=== PATIENT | female | born 1980 | race Caucasian/White ===

== ENCOUNTER → 2017-07-03 | Outpatient (CLI) | payer OTHER, MEDICAID | LOC: HORT 11:34 | PROVIDERS: ATTEND Family Medicine | DX: Z46.89 Encounter for fitting and adjustment of other specified devices (principal); S52.501A Unspecified fracture of the lower end of right radius, initial encounter for closed fracture | CPT/HCPCS: L3808 ==

== ENCOUNTER → 2017-07-17 | Outpatient (CLI) | payer OTHER, MEDICAID | LOC: HORT 11:31 | PROVIDERS: ATTEND Family Medicine | DX: S52.501A Unspecified fracture of the lower end of right radius, initial encounter for closed fracture (principal); X58.XXXA Exposure to other specified factors, initial encounter | CPT/HCPCS: L3808; L3908 ==

== ENCOUNTER 2017-07-24 17:23 | Emergency (ER) | payer MEDICAID, OTHER ==
[~2017-07-24] VITALS: Ht 167.6 cm; Wt 50.0 kg
[2017-07-24 17:26] VITALS: BP 165/80; PULSE 80; RESP 20; TEMP 98.3; O2SAT 98
--- NOTE | 2017-07-24 17:32 | PD ---
Physical Exam Time Seen by Provider: 17:29 Narrative 37yo F c/o R arm cast being too tight and causing numbness and tingling in fingers. Cast placed last . Called today and was told to come to ER. Patient seen in triage. VS reviewed. Awaiting bed placement. Data Data Last Documented VS Vital Signs Date Time Temp Pulse Resp B/P (MAP) Pulse Ox O2 Delivery O2 Flow Rate FiO2 07/24/17 17:26 98.3 80 20 165/80 (108) 98 Room Air MDM Supervised Visit with JR: Elva Edmonds Jul 24, 2017 17:32
--- NOTE | 2017-07-24 17:38 | PD ---
HPI Chief Complaint: Injury Time Seen by Provider: 17:35 Travel History International Travel<30 days: No Contact w/Intl Traveler<30days: No Traveled to known affect area: No History of Present Illness HPI 37-year-old female with history of distal radial fracture 3 weeks ago. Patient states the cast that she has now was placed one week ago but she' s having increasing pain and tingling in the fingers. Patient called the doctor 's office and was referred here for evaluation. Patient is followed by Dr. Oswald. Patient is in a long arm spica splint. Pain is currently an 8 out of 10. Pain is localized to the right elbow and forearm. Patient is allergic to aspirin. PFSH Past Medical History Asthma: Yes Anxiety: Yes Diminished Hearing: No ?: Not Tubal Ligation: Yes Social History Alcohol Use: No Tobacco Use: No Substance Use: No Allergies-Medications (Allergen,Severity, Reaction): Coded Allergies: aspirin (Verified Allergy, Unknown, 07/24/17) Review of Systems General / Constitutional: No: Fever Eyes: No: Visual changes HENT: No: Headaches Cardiovascular: No: Chest Pain or Discomfort Respiratory: No: Shortness of Breath Gastrointestinal: No: Abdominal Pain Genitourinary: No: Dysuria Musculoskeletal: No: Pain Skin: No Rash Neurologic: No: Weakness Psychiatric: No: Depression Endocrine: No: Polydipsia Hematologic/Lymphatic: No: Easy Bruising Physical Exam Narrative GENERAL: Patient is in no acute distress. SKIN: Warm and dry. Normal color. Normal turgor HEAD: Atraumatic. Normocephalic. EYES: Pupils equal and round. No scleral icterus. No injection or drainage. ENT: No nasal bleeding or discharge. Mucous membranes pink and moist. NECK: Trachea midline. Supple CARDIOVASCULAR: Regular rate and rhythm. RESPIRATORY: No accessory muscle use. Clear to auscultation. Breath sounds equal bilaterally. MUSCULOSKELETAL: Extremities without clubbing, cyanosis, or edema. No obvious deformities. Lungs are spica splint on the right arm in place and appears normal. Patient does have cool right fingers without swelling. Patient complains of pins and needles and fingers of the right. NEUROLOGICAL: Awake and alert. No obvious cranial nerve deficits. Motor grossly within normal limits. Five out of 5 muscle strength in the arms and legs. Normal speech. PSYCHIATRIC: Appropriate mood and affect; insight and judgment normal. Data Data Last Documented VS Vital Signs Date Time Temp Pulse Resp B/P (MAP) Pulse Ox O2 Delivery O2 Flow Rate FiO2 07/24/17 17:26 98.3 80 20 165/80 (108) 98 Room Air Orders Orders Splinting (07/24/17 ) MDM Medical Decision Making Medical Screen Exam Complete: Yes Emergency Medical Condition: Yes Medical Record Reviewed: Yes Differential Diagnosis Distal radial fracture. Pain and tingling under cast. Need for cast evaluation and possible replacement. Narrative Course [facility] were called to evaluate the cast. Cast was bivalved and then rewrapped with an Brian bandage. Patient to follow with orthopedist as needed. Diagnosis Primary Impression: Distal radius fracture, right Qualified Codes: S52.501D - Unspecified fracture of the lower end of right radius, subsequent encounter for closed fracture with routine healing Additional Impression: Cast discomfort Referrals: Caesar Oswald MD R4 1 week Patient Instructions: General Instructions Additional Instructions: Cast was bivalved and then rewrapped with an Brian bandage. Patient to follow with orthopedist as needed. Med/Other Pt SpecificInfo: No Change to Meds Disposition: 01 DISCHARGE HOME Condition: Stable Sincere Navarro Jul 24, 2017 17:38
== END 2017-07-24 18:47 | disposition home or self-care (01) ==
LOC: NEPK 17:23
DX: S52.501D Unspecified fracture of the lower end of right radius, subsequent encounter for closed fracture with routine healing (principal); X58.XXXD Exposure to other specified factors, subsequent encounter; J45.909 Unspecified asthma, uncomplicated; F41.9 Anxiety disorder, unspecified
CPT/HCPCS: 29705

== ENCOUNTER → 2017-07-31 | Outpatient (CLI) | payer OTHER | LOC: HORT 11:38 | PROVIDERS: ATTEND Family Medicine | DX: S52.501A Unspecified fracture of the lower end of right radius, initial encounter for closed fracture (principal); X58.XXXA Exposure to other specified factors, initial encounter | CPT/HCPCS: L3808 ==